=== PATIENT | male | born 1955 | race American Indian/Alaskan Native ===

== ENCOUNTER → 2017-09-08 08:00 | Outpatient (CLI) | payer OTHER | END | disposition home or self-care (01) | LOC: ADM 07:15 → LAB 08:00 → CIR.AMB 09-29 07:15 → EDSTATUS 09-29 07:15 | DX: K40.90 Unilateral inguinal hernia, without obstruction or gangrene, not specified as recurrent (principal); Z01.810 Encounter for preprocedural cardiovascular examination; Z01.812 Encounter for preprocedural laboratory examination ==

== ENCOUNTER 2017-09-23 19:58 | Emergency (ER) | payer OTHER ==
[~2017-09-23] VITALS: Ht 175.3 cm; Wt 71.7 kg
== END 2017-09-23 23:25 | disposition home or self-care (01) ==
LOC: ER 19:58
DX: H53.8 Other visual disturbances (principal); H91.8X1 Other specified hearing loss, right ear

== ENCOUNTER 2021-12-22 04:52 | Day surgery (SDC) | payer OTHER ==
[~2021-12-22] VITALS: Ht 175.3 cm; Wt 70.3 kg
[~2021-12-22 04:52] MED LIST: ADVIL100 M1 PO
== END 2021-12-22 14:05 | disposition home or self-care (01) ==
LOC: CIR.AMB 04:52
PROVIDERS: ATTEND Specialist
DX: K40.90 Unilateral inguinal hernia, without obstruction or gangrene, not specified as recurrent (principal); D17.6 Benign lipomatous neoplasm of spermatic cord; Z20.822 Contact with and (suspected) exposure to COVID-19; Z91.030 Bee allergy status; J45.909 Unspecified asthma, uncomplicated; K21.9 Gastro-esophageal reflux disease without esophagitis; Z85.51 Personal history of malignant neoplasm of bladder

== ENCOUNTER 2024-04-05 09:20 | Outpatient (CLI) | payer OTHER | END 2024-04-05 09:21 | disposition home or self-care (01) | LOC: SONOGRAMA 09:20 | PROVIDERS: ATTEND Internal Medicine Gastroenterology | DX: R10.13 Epigastric pain (principal) ==